=== PATIENT | male | born 1960 | race Caucasian/White ===

== ENCOUNTER 2024-09-28 06:32 | Emergency (ER) | payer SELFPAY ==
[2024-09-28] MEDS ORDERED: Dexamethasone 4 MG TAB ONE (07:32)
[2024-09-28] MEDS ORDERED: Benzonatate 100 MG CAP ONE (07:32)
[2024-09-28] MEDS ORDERED: Albuterol 200 PUFF (6.7GM INHALER) ONE (07:32)
== END 2024-09-28 07:45 | disposition home or self-care (01) ==
LOC: MADERS 06:32
DX: J44.1 Chronic obstructive pulmonary disease with (acute) exacerbation (principal)
CPT/HCPCS: 71046; 87428; J8540

== ENCOUNTER 2025-07-15 00:05 | Emergency (ER) | payer SELFPAY ==
[2025-07-15 00:30] LABS: Hematocrit 42.9 % (42.0-52.0); Hemoglobin 13.9 g/dL (14.0-18.0); Mean Corpuscular Hemoglobin 27.8 pg (27.0-31.0); Mean Corpuscular Volume 85.7 fl (78.0-98.0); Red Blood Cell (RBC) Count 5.01 mill/uL (4.70-6.10); White Blood Cell (WBC) Count 9.3 10x3/uL (4.8-10.8)
[2025-07-15 00:31] LABS: Platelet Count 319 10x3/uL (130-400)
[2025-07-15 00:32] LABS: MDiff Complete? YES
[2025-07-15] MEDS ORDERED: Albuterol 2.5 MG (3 mL) NEB ONE (00:43)
[2025-07-15] MEDS ORDERED: Furosemide 20 MG (2 mL) VIAL ONE (00:44)
[2025-07-15] MEDS ORDERED: Aspirin Chewable 81 MG TAB ONE (00:44)
[2025-07-15 00:45] LABS: Bacteria/HPF None Seen HPF (None Seen); CAUTI Indications for Culture Dysuria,urgency,freq; Glucose, Urine (Dipstick) Negative (Negative); Leukocyte Negative (Negative); Protein, Urine (Dipstick) Negative (Neg-Trace); RBC/HPF None Seen HPF (0-3); Specific Gravity, Urine Less/Equal 1.005 (1.005-1.030); WBC/HPF None Seen HPF (0-3)
[2025-07-15 00:46] LABS: Urine Culture Reflex No No
[2025-07-15 01:06] LABS: Troponin I Less than 0.010 ng/mL (< 0.028)
[2025-07-15 01:21] LABS: ALT (SGPT) 10 U/L (Less than 45); AST (SGOT) 18 U/L (11-34); Albumin 4.1 g/dL (3.1-4.5); Alkaline Phosphatase 165 U/L (40-110); Anion Gap 13 mmol/L (10-20); BUN (Urea Nitrogen) 12 mg/dL (8.4-25.7); Bilirubin, Total 0.4 mg/dL (0.3-1.2); Calc. Creatinine Clearance 0 mL/min (70-130); Calcium 9.6 mg/dL (7.8-10.44); Carbon Dioxide 26 mmol/L (23-31); Chloride 104 mmol/L (98-107); Globulin 2.5 g/dL (2.4-3.5); Glucose 97 mg/dL (80-115); Lipase 50 U/L (8-78); Magnesium 1.5 mg/dL (1.6-2.6); Potassium 3.2 mmol/L (3.5-5.1); Sodium 140 mmol/L (136-145)
[2025-07-15] MEDS ORDERED: Magnesium 2 GM/50 ML BAG (IN WATER) ONE (01:46)
[2025-07-15] MEDS ORDERED: Albuterol 200 PUFF (6.7GM INHALER) ONE (01:46)
== END 2025-07-15 03:48 | disposition home or self-care (01) ==
LOC: MADERS 00:05
DX: J44.1 Chronic obstructive pulmonary disease with (acute) exacerbation (principal); E87.6 Hypokalemia; E03.9 Hypothyroidism, unspecified; E83.42 Hypomagnesemia; R60.0 Localized edema; K21.9 Gastro-esophageal reflux disease without esophagitis; F17.210 Nicotine dependence, cigarettes, uncomplicated; Z79.899 Other long term (current) drug therapy
CPT/HCPCS: 71046; 80053; 81001; 83690; 83735; 83880; 84443; 84484; 85025; 93005; 94760; J1940; J2919; J3475; J7611